=== PATIENT | female | born 1960 | race Caucasian/White ===

== ENCOUNTER 2017-05-09 21:14 | Inpatient (IN) | payer OTHER ==
[~2017-05-09] VITALS: Ht 160 cm; Wt 111.1 kg
[2017-05-09 21:14] VITALS: BP 136/74
[~2017-05-09 21:14] MED LIST: ACETAMINOPHEN-120 ML PO; B-12250 MCG SUBLING; BACTRIM DS TAB1 EACH PO; BENAZEPRIL HCL20 MG PO; CALCIUM CITRAT1 EAC9 PO; CARBAMAZEPINE400 MG PO; CELEBREX 200 M200 MG PO; CLOBETASOL PROP50 M1 TOP; CYMBALTA60 MG PO; ENABLEX15 MG PO; FLOMAX0.4 MG PO; FUROSEMIDE 20 M20 M1 PO; FUROSEMIDE 40 M40 M1 PO; HYDROCERIN CREA1 JAR TOP; K-DUR10 MEQ PO; KLOR-CON 1010 MEQ PO; LUNESTA3 MG PO; MAGNESIUM OXID200 MG PO; MIRAPEX0.5 MG PO; MULTIVITAMINS PO; MYRBETRIQ25 MG PO; MYRBETRIQ50 MG PO; NORCO 10-325 T1 EACH PO; NORVASC10 MG PO; OMEPRAZOLE20 MG PO; OXYCONTIN20 M1 PO; PERCOCET 10-321 EACH PO; PERCOCET 5-3251 EACH PO; PHENERGAN 25 MG25 M1 PO; PREDNISONE 10 M10 M1 PO; THIOTHIXENE10 M1; TIROSINT75 MCG PO; TRAZODONE 150150 M1; VESICARE10 M1 PO; VITAMIN D 5050000 I1 PO; VITAMINC500 PO; ZOFRAN ODT4 MG PO
[2017-05-09 22:22] LABS: HEMATOCRIT 34.1 % (37.0-47.0); HEMOGLOBIN 11.2 gm/dL (12.0-15.0); MCH 28.6 pg (26.0-34.0); MCHC 32.9 g/dL (28.0-37.0); MCV 86.8 fL (80.0-100.0); PLATELET COUNT 243 thou/uL (150-400); RBC 3.92 mil/uL (4.20-5.00); RDW 14.4 % (10.5-14.5); WBC 8.6 thou/uL (4.0-11.0)
[2017-05-09 22:30] LABS: CREATININE 2.2 mg/dL (0.6-1.0)
[2017-05-09 22:35] LABS: ALBUMIN 3.3 g/dL (3.4-5.0); TOTAL BILIRUBIN 0.2 mg/dL (<0.1-1.0); TOTAL PROTEIN 7.5 g/dL (6.4-8.2)
[2017-05-09 22:37] LABS: MANUAL DIFF YES
[2017-05-09 23:03] LABS: ABSOLUTE NEUTROPHILS 6.9 thou/uL (1.4-8.2); ANISOCYTOSIS 1+; TOTAL CELL COUNT 100
[2017-05-09 23:57] VITALS: BP 124/68
[2017-05-10 00:35] VITALS: BP 129/68
[2017-05-10 04:33] VITALS: BP 105/47
[2017-05-10 06:00] LABS: HEMATOCRIT 29.1 % (37.0-47.0); HEMOGLOBIN 9.7 gm/dL (12.0-15.0); MCH 28.6 pg (26.0-34.0); MCHC 33.4 g/dL (28.0-37.0); MCV 85.6 fL (80.0-100.0); RBC 3.39 mil/uL (4.20-5.00); RDW 14.1 % (10.5-14.5); WBC 6.8 thou/uL (4.0-11.0)
[2017-05-10 06:18] LABS: ALBUMIN 2.6 g/dL (3.4-5.0); CALCIUM 8.5 mg/dL (8.5-10.1); POTASSIUM 3.9 mmol/L (3.5-5.1); TOTAL BILIRUBIN 0.2 mg/dL (<0.1-1.0); TOTAL PROTEIN 6.1 g/dL (6.4-8.2)
[2017-05-10 08:49] VITALS: BP 108/65
[2017-05-10 16:26] VITALS: BP 111/56
[2017-05-10 19:40] VITALS: BP 122/44
[2017-05-11 03:10] VITALS: BP 105/51
[2017-05-11 03:56] LABS: POTASSIUM 4.3 mmol/L (3.5-5.1)
[2017-05-11 04:08] LABS: HEMATOCRIT 28.7 % (37.0-47.0); HEMOGLOBIN 9.6 gm/dL (12.0-15.0); MCH 28.6 pg (26.0-34.0); MCHC 33.4 g/dL (28.0-37.0); MCV 85.7 fL (80.0-100.0); PLATELET COUNT 220 thou/uL (150-400); RBC 3.35 mil/uL (4.20-5.00); RDW 14.3 % (10.5-14.5); WBC 4.2 thou/uL (4.0-11.0)
[2017-05-11 04:11] LABS: MANUAL DIFF YES
[2017-05-11 05:24] LABS: ABSOLUTE NEUTROPHILS 1.9 thou/uL (1.4-8.2); ANISOCYTOSIS SLIGHT; TOTAL CELL COUNT 100
[2017-05-11 08:00] VITALS: BP 119/69
[2017-05-11 16:00] VITALS: BP 122/57
[2017-05-11 20:00] VITALS: BP 133/63
[2017-05-12 04:30] VITALS: BP 121/67
[2017-05-12 04:53] LABS: CALCIUM 8.9 mg/dL (8.5-10.1); POTASSIUM 4.8 mmol/L (3.5-5.1)
[2017-05-12 08:00] VITALS: BP 130/67
[2017-05-12] MEDS ORDERED: CLEOCIN HCL150 MG PO (14:00)
[2017-05-12 14:16] VITALS: BP 130/67
== END 2017-05-12 16:00 | disposition home or self-care (01) | DRG 602 ==
LOC: ER 21:14 → EROBS 23:13 → 4S 23:13 → EROBS 23:28 → 4S 05-10 00:18
PROVIDERS: Emergency Medicine; Internal Medicine Endocrinology, Diabetes & Metabolism; Nurse Practitioner
DX: L03.116 Cellulitis of left lower limb (principal); E43 Unspecified severe protein-calorie malnutrition; N17.9 Acute kidney failure, unspecified; Z68.41 Body mass index [BMI] 40.0-44.9, adult; L03.115 Cellulitis of right lower limb; N18.9 Chronic kidney disease, unspecified; I12.9 Hypertensive chronic kidney disease with stage 1 through stage 4 chronic kidney disease, or unspecified chronic kidney disease; E66.01 Morbid (severe) obesity due to excess calories; G47.30 Sleep apnea, unspecified; F31.9 Bipolar disorder, unspecified; Z96.653 Presence of artificial knee joint, bilateral; Z98.1 Arthrodesis status; Z79.899 Other long term (current) drug therapy; Z88.8 Allergy status to other drugs, medicaments and biological substances; Z88.0 Allergy status to penicillin; Z98.84 Bariatric surgery status
CPT/HCPCS: 10102

== ENCOUNTER → 2018-01-30 | Outpatient (CLI) | payer OTHER ==
[~2018-01-30] MED LIST changes: +ACETAMINOPHEN325 M1 PO; +ASPIR 8181 MG PO; +ATORVASTATIN CA40 MG PER TUBE; +ATORVASTATIN CA40 MG PO; -B-12250 MCG SUBLING; -BENAZEPRIL HCL20 MG PO; +BENAZEPRIL HCL40 MG PO; +CLEOCIN HCL150 MG PO; +CLOPIDOGREL75 MG PO; +COREG6.25 MG PO; +COZAAR 25 MG TA25 M1 PO; +DOXYCYCLINE 10100 MG PO; +ENDOCET 10-3251 EACH PO; -KLOR-CON 1010 MEQ PO; +LASIX 20 MG TAB20 MG PO; -MIRAPEX0.5 MG PO; +MIRAPEX0.75 MG PO; +NEURONTIN600 MG PO; +OXYCONTIN40 MG PO; +PACERONE 200 M200 M1 PER TUBE; +PACERONE 200 M200 M1 PO; +POTASSIUM CITR10 ME1 PO; +SYNTHROID75 MCG PO; -THIOTHIXENE10 M1; +THIOTHIXENE10 M1 PO; -TIROSINT75 MCG PO; +TOVIAZ4 M1 PO; -TRAZODONE 150150 M1; +TRAZODONE 150150 M1 PO; +TRIAMCINOLONE A80 G2 TOP; +TUMS PO; +VITAMIN B-12 51 EACH SUBLING
== END ==
LOC: ULTRA 10:16 → EDSTATUS 14:52
DX: M67.441 Ganglion, right hand (principal)

== ENCOUNTER → 2018-12-09 | Outpatient (CLI) | payer OTHER ==
[~2018-12-09] VITALS: Ht 160 cm; Wt 93.0 kg
[~2018-12-09] MED LIST changes: +ABILIFY 5 MG TAB5 MG PO; +B-125000 MCG/1 SUBLING
[2018-12-09 07:10] VITALS: BP 121/67
[2018-12-09 07:33] LABS: HEMATOCRIT 31.8 % (37.0-47.0); HEMOGLOBIN 10.5 gm/dL (12.0-15.0); MCH 29.2 pg (26.0-34.0); MCHC 33.2 g/dL (28.0-37.0); MCV 88.2 fL (80.0-100.0); RBC 3.6 mil/uL (4.20-5.00); RDW 13.9 % (10.5-14.5); WBC 5.5 thou/uL (4.0-11.0)
[2018-12-09 07:42] LABS: CALCIUM 8.9 mg/dL (8.5-10.1); CREATININE 1.6 mg/dL (0.6-1.0)
--- NOTE | 2018-12-09 13:13 | EKG ---
[address] [address] ELECTROCARDIOGRAM REPORT Name: SUE ANGUIANO [id number] Admission: 12/09/18 Attend Phys: Wilber Balbuena MD, Discharge: Date of : 56 Report #: [id number] THIS REPORT FOR: //name// [facility] Test Date: 2018-12-09 Test Time: 07:17:58 Pat Name: SUE ANGUIANO Department: Room: Gender: F Tree Chipper: Sia TAFOYA : 1960 Requested By: Wilber Balbuena Order Number: [id number] MD: Dayo Bowman Measurements Intervals Bowman Rate: 60 P: 38 SC: 206 QRS: 62 QRSD: 86 T: 36 QT: 395 QTc: 395 Interpretive Statements Sinus rhythm Borderline prolonged SC interval Borderline repolarization abnormality Compared to ECG 07/17/2018 06:22:00 Sinus tachycardia no longer present Myocardial infarct finding no longer present ST (T wave) deviation no longer present Electronically Signed On 12-09-2018 13:13:05 DECALER by Dayo Bowman [email or web address] <ELECTRONICALLY SIGNED> By: Dayo Bowman MD 12/09/18 1313 6 6 Dayo Bowman MD /EPI
--- NOTE | 2018-12-10 12:22 | CATHLAB ---
[facility] [place] [address] INVASIVE PROCEDURE REPORT Name: SUE ANGUIANO Room #: REG Tabatha#: [id number] Admission: 12/09/18 Attend Phys: Wilber Balbuena, Discharge: Date of : 56 Date of Service: 12/10/18 1222 Report #: [id number] THIS REPORT FOR: //name// APPROVED REPORT Study performed: 12/09/2018 08:11:04 Patient Details Patient Status: Out-Patient Room #: The patient is a 58 year-old female Event Personnel Wilber Balbuena Sales Project Coordinator, Peace Quan, Kahlil Goldstein David Monitor, Jack Siddiqui RN dyeing machine feeder Performed Left Heart Cath w/or w/o Coronaries [id number] [facility] Renal Bilateral Peripheral Angiography [id number] CVRENALBIL Indication Chest pain Procedure Narrative The Right Groin^ was infiltrated with 1% Lidocaine subcutaneous anesthesia. A PINNACLE 6FR Sheath #[id number] sheath was inserted into the RFA^. Coronary angiography was performed using coronary diagnostic catheters. The right coronary system was accessed and visualized with a JR4 catheter. The left coronary system was accessed and visualized with a JL4 catheter. The left ventricle was accessed and visualized with a PIGTAIL catheter. Left ventriculogram was performed in 30 degree projection. Closure device was deployed with a 6 Fr MYNXGRIP 6/7F #[id number]. The patient tolerated the procedure well and there were no complications associated with the procedure. There was no hematoma. Intraoperative Conscious Sedation Sedation start time: 8.33 Case end Time: 9.06 Fentanyl 50 mcg Versed 1 mg Fluoro Time: 2.25 minutes Dose: DAP 4081 cGycm2 425 mGy Contrast Type and Amount: Visipaque 90 ml Hemodynamics [facility] [place] [address] INVASIVE PROCEDURE REPORT Name: SUE ANGUIANO [id number] Admission: 12/09/18 Attend Phys: Wilber Balbuena, Discharge: Date of : 56 Date of Service: 12/10/18 1222 Report #: [id number] The aortic pressure is 117/67 mmHg with a mean of 88 mmHg. The left ventricular pressure is 127/15 mmHg with a mean of mmHg. Conclusion #1 left main moderate size free of disease giving rise to LAD and circumflex #2 LAD has a previously placed proximal stent widely patent 30% lesion proximal to the stent and mid vessel at the diagonal takeoff has a 40-50% eccentric lesion #3 circumflex OM with mild disease there is a 50% proximal lesion which actually lives in the proximal OM #4 small ramus branch has a high-grade lesion but this is small and distribution not amenable to intervention #5 large dominant right coronary artery widely patent #6 there is a dual supply to left renal arteries selectively injected inferior branch has a 50% ostial lesion left superior branch also has a 50% eccentric ostial lesion involving the right renal artery has a 50% lesion #7 normal left ventricular size and systolic function EF 60% Recommendations and plan: Continue aggressive risk factor modification. We'll follow blood pressure closely. Has moderate renal artery stenosis although does not warrant intervention at this point. Moderate LAD and circumflex disease which we will follow. Follow-up arrangements 6 months with a renal Doppler. <ELECTRONICALLY SIGNED> By: Wilber Balbuena MD, FACC 12/10/18 1222 122 122 Wilber Balbuena MD, FACC /INF
== END | disposition home or self-care (01) ==
LOC: CATH 06:54
PROVIDERS: Internal Medicine Cardiovascular Disease
DX: I25.10 Atherosclerotic heart disease of native coronary artery without angina pectoris (principal); I11.0 Hypertensive heart disease with heart failure; I50.9 Heart failure, unspecified; I42.9 Cardiomyopathy, unspecified; E78.5 Hyperlipidemia, unspecified; M79.7 Fibromyalgia; F31.9 Bipolar disorder, unspecified; G62.9 Polyneuropathy, unspecified; Z82.49 Family history of ischemic heart disease and other diseases of the circulatory system; E66.09 Other obesity due to excess calories; Z96.653 Presence of artificial knee joint, bilateral; Z98.51 Tubal ligation status; Z95.1 Presence of aortocoronary bypass graft; Z95.5 Presence of coronary angioplasty implant and graft; Z87.19 Personal history of other diseases of the digestive system; Z86.711 Personal history of pulmonary embolism; Z88.0 Allergy status to penicillin; Z88.8 Allergy status to other drugs, medicaments and biological substances; Z79.82 Long term (current) use of aspirin; Z79.899 Other long term (current) drug therapy; Z79.891 Long term (current) use of opiate analgesic; Z79.01 Long term (current) use of anticoagulants

== ENCOUNTER 2019-01-27 14:10 | Emergency (ER) | payer OTHER ==
[~2019-01-27] VITALS: Ht 160 cm; Wt 97.1 kg
[2019-01-27 18:11] LABS: BASOPHILS 1.8 % (0.0-2.0); EOSINOPHILS 5.6 % (0.0-3.0); HEMATOCRIT 31.1 % (37.0-47.0); HEMOGLOBIN 10.2 gm/dL (12.0-15.0); MCH 27.9 pg (26.0-34.0); MCHC 32.9 g/dL (28.0-37.0); MCV 84.9 fL (80.0-100.0); PLATELET COUNT 354 thou/uL (150-400); POLYS 53.6 % (36.0-66.0); RBC 3.67 mil/uL (4.20-5.00); WBC 5.5 thou/uL (4.0-11.0)
[2019-01-27 18:19] LABS: CALCIUM 9.5 mg/dL (8.5-10.1); CREATININE 2.1 mg/dL (0.6-1.0); POTASSIUM 4.1 mmol/L (3.5-5.1)
[2019-01-27 19:22] VITALS: BP 136/71
== END 2019-01-27 19:23 | disposition home or self-care (01) ==
LOC: ER 14:10
PROVIDERS: Nurse Practitioner Family
DX: G89.18 Other acute postprocedural pain (principal); M79.662 Pain in left lower leg; R22.42 Localized swelling, mass and lump, left lower limb; L53.9 Erythematous condition, unspecified; I10 Essential (primary) hypertension; G47.30 Sleep apnea, unspecified; I25.10 Atherosclerotic heart disease of native coronary artery without angina pectoris; M79.7 Fibromyalgia; F31.9 Bipolar disorder, unspecified; G62.9 Polyneuropathy, unspecified; Z88.1 Allergy status to other antibiotic agents; Z88.0 Allergy status to penicillin; Z88.8 Allergy status to other drugs, medicaments and biological substances; Z96.653 Presence of artificial knee joint, bilateral

== ENCOUNTER 2019-08-16 01:47 | Emergency (ER) | payer OTHER ==
[~2019-08-16] VITALS: Ht 160 cm; Wt 98.0 kg
[2019-08-16] MEDS ORDERED: NEURONTIN 300300 M1 PO (02:22)
[2019-08-16] MEDS ORDERED: FLEXERIL PO (02:23)
[2019-08-16] MEDS ORDERED: DOXYCYCLINE 10100 MG PO (02:24)
[2019-08-16 03:28] LABS: ABSOLUTE NEUTROPHILS 5.7 thou/uL (1.4-8.2); EOSINOPHILS 0.6 % (0.0-3.0); HEMATOCRIT 36.2 % (37.0-47.0); HEMOGLOBIN 11.5 gm/dL (12.0-15.0); LYMPHOCYTES 13.1 % (24.0-44.0); MCH 27.4 pg (26.0-34.0); MCHC 31.9 g/dL (28.0-37.0); MONOCYTES 4.9 % (1.0-8.0); PLATELET COUNT 208 thou/uL (150-400); POLYS 80.4 % (36.0-66.0); RBC 4.21 mil/uL (4.20-5.00); RDW 16.7 % (10.5-14.5); WBC 7.1 thou/uL (4.0-11.0)
[2019-08-16 03:32] LABS: ANION GAP 10 mmol/L (7-16); BUN 44 mg/dL (7-18); CALCIUM 8.9 mg/dL (8.5-10.1); CHLORIDE 107 mmol/L (98-107); CO2 25 mmol/L (21-32); CREATININE 1.4 mg/dL (0.6-1.0); GLUCOSE 96 mg/dL (74-106); POTASSIUM 4.3 mmol/L (3.5-5.1); SODIUM 142 mmol/L (136-145)
[2019-08-16 03:41] LABS: TROPONIN-I <0.06 ng/mL (<0.06)
[2019-08-16 05:09] VITALS: BP 137/62
--- NOTE | 2019-08-16 14:31 | EKG ---
[address] [address] [place] [address] ELECTROCARDIOGRAM REPORT Name: SUE ANGUIANO Room #: DEP [facility]#: [id number] ������������������ Admission: 08/16/19 ������������������ Attend Phys: Discharge: 08/16/19 ������������������ Date of : 56 Report #: [id number] ����������������������������������������������������������������� [id number] THIS REPORT FOR: //name// [facility] ED Test Date: 2019-08-16 Test Time: 02:33:21 Pat Name: SUE ANGUIANO Department: Room: Gender: F Vault Attendant: ZAIDA : 1960 Requested By: Gus Echols Order Number: [id number] MD: Evangelist Heller Measurements Intervals [place] Rate: 60 P: 34 VT: 212 QRS: 30 QRSD: 88 T: 86 QT: 417 QTc: 417 Interpretive Statements Sinus rhythm Borderline prolonged VT interval Probable anteroseptal infarct, old Compared to ECG 12/09/2018 07:17:58 septal Q waves are now present Electronically Signed On 08-16-2019 14:30:53 CDT by Evangelist Heller [email or web address] ��������������������������������������������� <ELECTRONICALLY SIGNED> ���������������������������������������� By: Evangelist Heller MD, [facility] ��������������������������������������������� 08/16/19 1430 0233 0233 Evangelist Heller MD, [facility] /EPI
== END 2019-08-16 05:12 | disposition home or self-care (01) ==
LOC: ER 01:47
PROVIDERS: Emergency Medicine
DX: I10 Essential (primary) hypertension (principal); R06.00 Dyspnea, unspecified; I25.10 Atherosclerotic heart disease of native coronary artery without angina pectoris; I25.2 Old myocardial infarction; F31.9 Bipolar disorder, unspecified; G62.9 Polyneuropathy, unspecified; M79.7 Fibromyalgia; Z98.890 Other specified postprocedural states; Z96.653 Presence of artificial knee joint, bilateral; Z98.84 Bariatric surgery status; Z88.1 Allergy status to other antibiotic agents; Z88.0 Allergy status to penicillin; Z88.8 Allergy status to other drugs, medicaments and biological substances

== ENCOUNTER → 2019-09-03 | Outpatient (CLI) | payer OTHER ==
[~2019-09-03] MED LIST changes: +FLEXERIL PO; +NEURONTIN 300300 M1 PO
== END ==
LOC: NUC 08:20
DX: M81.0 Age-related osteoporosis without current pathological fracture (principal); M85.88 Other specified disorders of bone density and structure, other site; L03.115 Cellulitis of right lower limb

== ENCOUNTER → 2020-04-26 | Outpatient (CLI) | payer OTHER | LOC: SJCVCIMAG 13:43 | DX: R22.43 Localized swelling, mass and lump, lower limb, bilateral (principal); I87.2 Venous insufficiency (chronic) (peripheral) ==

== ENCOUNTER 2020-10-01 16:48 | Inpatient (IN) | payer OTHER ==
[~2020-10-01] VITALS: Ht 154.9 cm; Wt 124.7 kg
[~2020-10-01 16:48] MED LIST changes: -NEURONTIN 300300 M1 PO; +NEURONTIN 300M300 M2 PO
[2020-10-01 17:36] VITALS: BP 179/91
[2020-10-01 18:22] LABS: BASOPHILS 0.2 % (0.0-2.0); EOSINOPHILS 0.6 % (0.0-3.0); HEMATOCRIT 36.7 % (37.0-47.0); HEMOGLOBIN 11.6 gm/dL (12.0-15.0); LYMPHOCYTES 3.5 % (24.0-44.0); MCH 28.2 pg (26.0-34.0); MCHC 31.6 g/dL (28.0-37.0); MCV 89.4 fL (80.0-100.0); MONOCYTES 6.2 % (1.0-8.0); PLATELET COUNT 221 thou/uL (150-400); POLYS 89.5 % (36.0-66.0); RBC 4.11 mil/uL (4.20-5.00); RDW 15.2 % (10.5-14.5); WBC 16.7 thou/uL (4.0-11.0)
[2020-10-01 18:39] LABS: ANION GAP 12 mmol/L (7-16); BUN 39 mg/dL (7-18); CALCIUM 9.2 mg/dL (8.5-10.1); CHLORIDE 107 mmol/L (98-107); CO2 24 mmol/L (21-32); CREATININE 1.6 mg/dL (0.6-1.0); GLUCOSE 111 mg/dL (74-106); POTASSIUM 4.3 mmol/L (3.5-5.1); SODIUM 143 mmol/L (136-145)
[2020-10-01 18:50] LABS: ALBUMIN 3.3 g/dL (3.4-5.0); MAGNESIUM 1.9 mg/dL (1.8-2.4); SGOT 25 U/L (15-37); SGPT 33 U/L (30-65); TOTAL BILIRUBIN 0.4 mg/dL (0.2-1.0); TOTAL PROTEIN 6.7 g/dL (6.4-8.2); TROPONIN-I <0.06 ng/mL (<0.06)
--- NOTE | 2020-10-01 20:01 | NUR ---
PT REPORTS SHE IS NOT ABLE TO PROVIDE A UA AT THIS TIME.
[2020-10-01 20:51] LABS: URINE BILIRUBIN NEGATIVE (Negative); URINE BLOOD NEGATIVE (Negative); URINE CLARITY SL CLOUDY; URINE COLOR YELLOW; URINE GLUCOSE-RANDOM* NEGATIVE (Negative); URINE KETONES NEGATIVE (Negative); URINE NITRITE-REFLEX NEGATIVE (Negative); URINE PROTEIN (DIPSTICK) NEGATIVE (Negative); URINE SPECIFIC GRAVITY 1.025 (1.005-1.035); URINE UROBILINOGEN 0.2 E.U./dl (0.2-1.0)
[2020-10-01 20:52] LABS: URINE LEUKOCYTES-REFLEX 1+ (Negative)
[2020-10-01 21:15] LABS: SQUAMOUS >10 Many /LPF (0-3)
[2020-10-01 21:16] LABS: BACTERIA-REFLEX >30 Many /HPF (None Seen); CASTS None Seen /LPF (None Seen); CRYSTALS None Seen /LPF (None Seen); URINE RBC 0-2 Rare /HPF (0-2)
[2020-10-01] MEDS ORDERED: MIRAPEX1 MG PO (22:01)
[2020-10-01 23:48] LABS: FERRITIN 85 ng/mL (8-252)
[2020-10-02] VITALS (7 sets, daily range): BP systolic 101–167; BP diastolic 61–89
--- NOTE | 2020-10-02 02:52 | NUR ---
PT ADMITTED FROM ER C/O WEAKNESS, FATIGUE, CHEST PAIN, FEVER, . ST ON MONITOR. FIRST TROPONIN IS NEGATIVE. IST COVID IS NEGATIVE. ORIENTED PT TO ROOM. CALL LIGHT IN REACH. BED ALARM IS ON. BED DOWN IN LOW LOCKED POSITION. EXPLAINED PT TO LOW LOCKED POSIION.
--- NOTE | 2020-10-02 05:30 | NUR ---
PT PROGRESSING SLOWLY TOWARDS D/C GOALS. VSS. LOW GRADE EMP. HYDROCODONE GIVEN FOR C/O LE PAIN NO RELIEVED BY FLEXORIL. GABAPENTIN GIVEN EARLY REQUESTED PER URGENT CARE PHYSICIAN. COVID AND TROPONIN NEGATIVE SO FAR.
[2020-10-02 05:41] LABS: CALCIUM 8.7 mg/dL (8.5-10.1); CREATININE 1.4 mg/dL (0.6-1.0); POTASSIUM 4.1 mmol/L (3.5-5.1)
[2020-10-02 05:51] LABS: HEMATOCRIT 33.1 % (37.0-47.0); HEMOGLOBIN 10.6 gm/dL (12.0-15.0); MCH 28.5 pg (26.0-34.0); MCHC 31.9 g/dL (28.0-37.0); MCV 89.5 fL (80.0-100.0); RBC 3.7 mil/uL (4.20-5.00); RDW 14.6 % (10.5-14.5); WBC 13.9 thou/uL (4.0-11.0)
--- NOTE | 2020-10-02 15:53 | NUR ---
PT MAY BE DC'D FROM ENHANCED PRECAUTIONS PER DR MIKE DICKENS
--- NOTE | 2020-10-02 22:14 | NUR ---
PT ALERT AND ORIENTED X4 VSS. HRR 66 SR ON MONITOR. NO C/O CP NO SOA. NO S/S DISTRESS. NEW IV STARTED RIGHT HAND. IVF INFUSING WITHOUT DIFFICULTY. PUREWICK INTACT DRAINING CLEAR YELLOW URINE. HYDROCODONE GIVEN FORE C/O ALL OVER GENERALIZED PAIN. PT RESTING QUIETLY PRESENTLY NO S/S DISTRESS.
[2020-10-03 02:01] VITALS: BP 132/76
--- NOTE | 2020-10-03 02:33 | NUR ---
PATIENT TRANSFER FROM 3W.PATIENT AOX4 MAKES NEEDS KNOWN. PATIENT REFUSED C PAP THIS SHIFT.PAIN CONTROLLED TH IS SHIFT. PATIENT INCONTIENT THIS SHIFT PERICARE AND BARRIER APPLIED NEEDED.SCD ON.FALL PRECAUTION IN PLACE. PATIENT IN BED ASLEEP AT THIS TIME BREATHING REGULAR AND UNLBOURED.
--- NOTE | 2020-10-03 07:45 | EKG ---
[facility] [place] [facility] [place] [address] ELECTROCARDIOGRAM REPORT Name: SUE ANGUIANO Room #: 456-P ADM IN M.R.#: [id number] Admission: 10/01/20 Attend Phys: Christiano Albert MD Discharge: Date of : 56 Report #: [id number] THIS REPORT FOR: cc: NERISSA ARCE - Family physician unknown Evangelist Heller MD [facility] THIS REPORT FOR: //name// [facility] [place] [facility] ED Test Date: 2020-10-01 Test Time: 16:54:42 Pat Name: SUE ANGUIANO Department: Room: [facility] Gender: F Thiokol Operator: [facility] : 1960 Requested By: Emeterio Laws Order Number: [id number] MD: Evangelist Heller Measurements Intervals [place] Rate: 98 P: 44 MI: 202 QRS: 15 QRSD: 87 T: 61 QT: 325 QTc: 415 Interpretive Statements Sinus rhythm with first-degree AV block Otherwise normal tracing Compared to ECG 08/16/2019 02:33:21 No significant changes found Electronically Signed On 10-03-2020 7:45:39 MILD DISABILITIES TEACHER by Evangelist Heller [email or web address] <ELECTRONICALLY SIGNED> By: Evangelist Heller MD, [facility] 10/03/20 0745 1654 1654 Evangelist Heller MD, [facility] /EPI
--- NOTE | 2020-10-03 07:51 | EKG ---
[facility] [place] [address] [address] ELECTROCARDIOGRAM REPORT Name: SUE ANGUIANO Room #: 456-P ADM IN M.R.#: [id number] Admission: 10/01/20 Attend Phys: Christiano Albert MD Discharge: Date of : 56 Report #: [id number] THIS REPORT FOR: cc: NERISSA ARCE - Family physician unknown Evangelist Heller MD [facility] THIS REPORT FOR: //name// [facility] Test Date: 2020-10-02 Test Time: 07:18:46 Pat Name: SUE ANGUIANO Department: Room: [facility] Gender: F Heel Layer: ABRAHAM : 1960 Requested By: Candi Ch Order Number: [id number] MD: Evangelist Heller Measurements Intervals [place] Rate: 89 P: 41 [place]: 181 QRS: 46 QRSD: 93 T: 17 QT: 343 QTc: 418 Interpretive Statements Sinus rhythm Normal tracing Compared to ECG 10/01/2020 16:54:42 No significant change was found Electronically Signed On 10-03-2020 7:51:02 PREPPER by Evangelist Heller [email or web address] <ELECTRONICALLY SIGNED> By: Evangelist Heller MD, FACC 10/03/20 0751 7 7 Evangelist Heller MD, [facility] /EPI
[2020-10-03 08:00] VITALS: BP 103/56
--- NOTE | 2020-10-03 09:58 | NUR ---
Assess due to high BMI 52=extreme obesity. Hx htn, HARISH, gastric bypass 2001, bipolar, NSTEMI. Admit with weakness, UTI. Pt reports and frustrated with wt gain of at least 50-60 lb which she states happened "with COVID crisis". Wt records do reflect this severe gain. Pt reports more snacking, limited mobility, lack of portion control. Offered some suggestions however pt with very limited food preferences and does not routinely like fruits or vegetables. Requested information on heart healthy diet which was provided. Encouraged to make small changes, reduce portions, try new healthier foods. Low nutrition risk while hospitalized.
[2020-10-03 10:05] LABS: CREATININE 1.4 mg/dL (0.6-1.0); POTASSIUM 3.9 mmol/L (3.5-5.1)
--- NOTE | 2020-10-03 11:24 | NUR ---
Assumed pt care at 7am.Pt in bed alert and oriented x4.Assessment completed. vss but low bp noted.Monique air drier here and order noted.Pt will be having echo later today.Covid 19 swab done later this morning.Pain med given early this shift with relief.No further c/o at present.Will continue to monitor.
--- NOTE | 2020-10-03 12:12 | NUR ---
PT ADMITTED RELATED TO R/O COVID, UTI, LEUKOCYTOSIS, BLE WEAKNESS. CM REVIEWED CHART AND SPOKE WITH CARE TEAM. CM CALLED AND SPOKE WITH PT OVER THE PHONE THIS AM. PT APPEARED TO BE A&O X4. CM ROLE INTRODUCED. PT INDICATED SHE LIVES IN A HOSUE WITH HE SPOUSE WITH A RAMP TO ENTER. PT INDICATED SHE USED A FWW AND A WC TO ASSSIT WITH MOBILITY MATERIAL EXPEDITOR. PT INDICATED HER PCP IS DR. NERISSA ARCE BUT SHE'S LOOKING TO CHANGE. PT INDICATED THAT SHE WAS INTERESTED IN GOING TO 5N AND DIDN'T WANT TO GO TO SNF DUE TO COVID. PT HAD BEEN TO [facility] IN THE PAST. CM INDICATED THAT PT'S INSURANCE LIKELY WOULDN'T AUTH ACUTE REHAB BUT THAT CM WOULD NOTIFY LIAISON. LIAISON INDIATED THAT PT DIDN'T LOOK TO HAVE ANY APPROPRIATE DX FOR ADMISSION. CM NOTIFIED PT AND WILL PROVIDE [facility] SNF LIST FOR REVIEW. CM TO FOLLOW INDICATED WITH DC PLANNING.
--- NOTE | 2020-10-03 13:28 | 2DMMODE ---
[facility] [place] [address] [place] [address] 2 D/M-MODE ECHOCARDIOGRAM Name: SUE ANGUIANO Room #: 456-P ADM IN M.R.#: [id number] Admission: 10/01/20 Attend Phys: Christiano Albert MD Discharge: Date of : 56 Report #: [id number] THIS REPORT FOR: cc: NERISSA ARCE - Family physician formerly [facility] Inder Barnes MD [facility] ~ APPROVED REPORT Study performed: 10/03/2020 13:12:22 EXAM: Comprehensive 2D, Doppler, and color-flow Echocardiogram Patient Location: Bedside Room #: 456 Status: routine BSA: 2.14 HR: 87 bpm BP: 132/76 mmHg Rhythm: NSR Other Information Study Quality: Good Indications CAD Cardiomyopathy Hypertension/HDD 2D Dimensions RVDd: 41.81 mm IVSd: 11.34 (7-11mm) LVOT Diam: 20.32 (18-24mm) LVDd: 52.24 mm PWd: 10.61 (7-11mm) Ascending Ao: 32.20 (22-36mm) LVDs: 37.91 (25-40mm) Aortic Root: 30.29 mm IVC: 26.00 mm Volumes Left Atrial Volume (Systole) Single Plane 4CH: 108.67 mL Single Plane 2CH: 74.89 mL LA ESV Index: 46.00 mL/m2 Aortic Valve AoV Peak Myron.: 1.62 m/s AO Peak Gr.: 10.52 mmHg LVOT Max P.49 mmHg [facility] [address] [place] [address] 2 D/M-MODE ECHOCARDIOGRAM Name: SUE ANGUIANO Room #: 456-P [facility] IN .R.#: [id number] Admission: 10/01/20 Attend Phys: Christiano Albert MD Discharge: Date of : 56 Report #: [id number] LVOT Max V: 1.17 m/s FLORINA Vmax: 2.34 cm2 Mitral Valve E/A Ratio: 1.1 MV Decel. Time: 224.98 ms MV E Max Myron.: 1.28 m/s MV A Myron.: 1.15 m/s MV PHT: 65.24 ms IVRT: 96.89 ms Pulmonary Valve PV Peak Myron.: 1.07 m/s PV Peak Gr.: 4.62 mmHg Pulmonary Vein P Vein S: 0.67 m/s P Vein A: 0.24 m/s P Vein D: 0.33 m/s P Vein A Dur.: 110.7 msec P Vein S/D Ratio: 2.03 Tricuspid Valve TR Peak Myron.: 2.86 m/s TR Peak Gr.: 32.67 mmHg PA Pressure: 43.00 mmHg Left Ventricle The left ventricle is normal size. There is normal LV segmental wall motion. There is normal left ventricular wall thickness. The left ventricular systolic function is normal. The left ventricular ejection fraction is within the normal range. LVEF is 55%. Grade II - pseudonormal filling dynamics. Right Ventricle The right ventricle is normal size. The right ventricular systolic function is normal. Atria Left atrium is dilated. Right atrium is dilated. Aortic Valve The aortic valve is normal in structure. No aortic regurgitation is present. There is no aortic valvular stenosis. Mitral Valve The mitral valve is normal in structure. Mild mitral regurgitation. No evidence of mitral valve stenosis. [facility] [employer] [place] [address] 2 D/M-MODE ECHOCARDIOGRAM Name: SUE ANGUIANO Room #: 456-P [facility] IN M.R.#: [id number] Admission: 10/01/20 Attend Phys: Christiano Albert MD Discharge: Date of : 56 Report #: [id number] Tricuspid Valve The tricuspid valve is normal in structure. There is mild tricuspid regurgitation. Estimated PAP 43 mmHg. There is moderate pulmonary hypertension. Pulmonic Valve The pulmonary valve is normal in structure. There is no pulmonic valvular regurgitation. Great Vessels The aortic root is normal in size. IVC is dilated and collapses >50% with inspiration. Pericardium There is no pericardial effusion. <Conclusion> Normal left ventricular size and the wall thickness Preserved ejection fraction of 55% Grade 1 diastolic dysfunction Mild aortic valve sclerosis without stenosis Normal right ventricular size and function LV; no segmental wall motion abnormality Mild biatrial enlargement Mild mitral valve insufficiency Mild tricuspid valve insufficiency PA pressure systolic estimated 43 mmHg No pericardial effusion <ELECTRONICALLY SIGNED> By: Inder Barnes MD, FACC 10/03/201327 27 27 Inder Barnes MD, FACC /INF
[2020-10-03 20:00] VITALS: BP 138/86
[2020-10-04 00:03] VITALS: BP 150/87
[2020-10-04 04:40] VITALS: BP 127/76
[2020-10-04 07:26] VITALS: BP 133/73
[2020-10-04 09:15] LABS: CALCIUM 8.2 mg/dL (8.5-10.1); CREATININE 1.2 mg/dL (0.6-1.0); POTASSIUM 4.4 mmol/L (3.5-5.1)
[2020-10-04 16:06] VITALS: BP 141/61
--- NOTE | 2020-10-04 16:09 | NUR ---
LINK reviewed chart and spoke with nursing and attending physician. Pt was transferred to 3 from 4W yesterday after receiving positive COVID test. Pt placed in Enhanced Isolation. Pt is on IV abx. LINK spoke with pt via phone to discuss discharge plan: SNF v. home with HH. Pt states she would prefer to have HH come see her at home. Options provided for HH companies. Pt states she has used [facility] in the past and would like to use them again. Pt also stating she needs a walker and wheelchair. community development planner to fax HH referral to [facility]. LINK sent face sheet to [facility] for review to see if they accept pt's insurance for DME. Discharge home is anticipated in 1-2 days. LINK is following to assist as needed with discharge planning.
--- NOTE | 2020-10-04 19:21 | NUR ---
ASSUMED PATIENT CARE AT 0700. A/O X4. UP WITH STABDBY ASSISTED. PATIENT ABLE TO WALK A FEW STEPS.LOW BACK PAIN. SLOWLY TOWARDS POC GOALS.
[2020-10-04 20:10] VITALS: BP 131/78
--- NOTE | 2020-10-05 00:52 | NUR ---
PT RESTING IN BED WATCHING THE NEWS. LUNGS DIMINSHED IN THE BASES. PT IS VERY SLOW TO SIT ON THE EDGE OF THE BED, NEEDING ASSISTANCE TO LOWER HER LEGS OVER THE BED. PT IS ABLE TO STAND WITH WALKER AND SLOWLY SHUFFLE FORWARD TO PIVOT ONTO BSC. PT HAD HS SNACK, PRN FOR CHRONIC BACK PAIN PROVIDED. BED ALARM ON.
[2020-10-05 04:35] VITALS: BP 119/57
[2020-10-05 07:44] VITALS: BP 126/57
[2020-10-05 11:22] VITALS: BP 114/67
[2020-10-05 15:08] VITALS: BP 116/68
--- NOTE | 2020-10-05 15:46 | NUR ---
SW reviewed chart. Pt remains in Enhanced Isolation due to COVID-19. Pt is afebrile and not requiring O2. Pt is on IV abx. ID consulted today. Pt would like to return home with when discharged. LINK faxed HH referral to [facility] for review. LINK followed up with [facility] liaison, who will check to see if they are in-network with pt's insurance for a walker and wheelchair. LINK is following to assist as needed with discharge planning.
--- NOTE | 2020-10-05 17:54 | NUR ---
ASSUMED PATIENT CARE AT 0700. A/O X4. UP WALKED IN ROOM. SOLWLY TOWARDS POC GOALS.
[2020-10-05] MEDS ORDERED: NF PO (20:37)
[2020-10-05 20:47] VITALS: BP 133/49
--- NOTE | 2020-10-06 01:37 | NUR ---
ASSUMED PT CARE AROUND 1930. AXOX4. VSS. NO S/S ACUTE DISTRESS NOTED OR REPORTED AT THIS TIME. WILL CONT TO MONITOR FOR ANY CHANGES IN CONDTION.
[2020-10-06 05:22] VITALS: BP 144/68
[2020-10-06 07:26] VITALS: BP 151/73
[2020-10-06 10:18] VITALS: BP 151/73
--- NOTE | 2020-10-06 10:19 | NUR ---
FAXED REFERRAL TO [facility] HH SPOKE WITH EDU IN INTAKE SHE RECEIVED REFERRAL AND WILL ACCEPT AT [place].
[2020-10-06] MEDS ORDERED: CLINDAMYCIN HC300 MG PO (12:02)
--- NOTE | 2020-10-06 14:08 | NUR ---
ASSUMED PATIENT CARE AT 0700. A/0 X4. PROGRESSING TOWARDS POC GOALS. DC HOME WITH HH.
--- NOTE | 2020-10-06 15:49 | NUR ---
DISCHARGE NOTE: LINK reviewed chart and spoke with nursing and attending physician. Pt remains in Enhanced Isolation due to COVID-19. Pt is medically stable for discharge home today with services. LINK notified that [facility] is unable to accept pt on service at this time, due to staffing. equipment planner faxed HH referral and discharge orders/summary to [facility], who can accept. LINK spoke with Heriberto at [facility] [place], who states that pt's insurance will only cover one item at this time: wheelchair or walker. LINK spoke with pt via phone to discuss discharge plan. Pt verbalized understanding and would like a wheelchair for mobility around her house and outside of her home. LINK explained that insurance will need to approve w/c and it may take awhile to have w/c delivered to pt's home. Pt agreeable. Pt aware of having [facility]. Contact info for HH placed in pt's discharge summary. LINK obtained script for w/c from hospitalist and faxed to [facility] [place]. Pt's family provided transportation home earlier today. [facility] to follow up with pt regarding delivery of heavy duty w/c. LINK is following to assist as needed with discharge planning.
== END 2020-10-06 15:06 | disposition home health service (06) | DRG 177 ==
LOC: ER 16:48 → 3W 22:10 → EROBS 22:10 → 4W 22:10 → 3W 10-02 01:12 → 4W 10-03 01:46 → 3W 10-03 22:47
PROVIDERS: Emergency Medicine; Nurse Practitioner Adult Health; Nurse Practitioner Family; ADMIT Hospitalist; ATTEND Hospitalist
PROC: 5A09357 Assistance with Respiratory Ventilation, Less than 24 Consecutive Hours, Continuous Positive Airway Pressure (ICD-10-PCS; principal; 2020-10-03)
DX: U07.1 COVID-19 (principal); N17.0 Acute kidney failure with tubular necrosis; J12.89 Other viral pneumonia; Z68.43 Body mass index [BMI] 50.0-59.9, adult; R07.9 Chest pain, unspecified; I25.5 Ischemic cardiomyopathy; M79.7 Fibromyalgia; F32.9 Major depressive disorder, single episode, unspecified; G47.33 Obstructive sleep apnea (adult) (pediatric); E03.9 Hypothyroidism, unspecified; G62.9 Polyneuropathy, unspecified; E78.5 Hyperlipidemia, unspecified; I12.9 Hypertensive chronic kidney disease with stage 1 through stage 4 chronic kidney disease, or unspecified chronic kidney disease; N30.90 Cystitis, unspecified without hematuria; E66.01 Morbid (severe) obesity due to excess calories; D64.9 Anemia, unspecified; I25.10 Atherosclerotic heart disease of native coronary artery without angina pectoris; Z96.653 Presence of artificial knee joint, bilateral; Z98.84 Bariatric surgery status; Z79.82 Long term (current) use of aspirin; I25.2 Old myocardial infarction; Z79.899 Other long term (current) drug therapy; Z88.1 Allergy status to other antibiotic agents; Z88.0 Allergy status to penicillin; Z88.8 Allergy status to other drugs, medicaments and biological substances
CPT/HCPCS: 10779; 10879

== ENCOUNTER 2020-10-13 07:26 | Emergency (ER) | payer OTHER ==
[~2020-10-13] VITALS: Ht 154.9 cm; Wt 122.5 kg
[~2020-10-13 07:26] MED LIST changes: +CLINDAMYCIN HC300 MG PO; +MIRAPEX1 MG PO; +NF PO
[2020-10-13 10:31] LABS: ABSOLUTE NEUTROPHILS 3.9 thou/uL (1.4-8.2); BASOPHILS 1.1 % (0.0-2.0); EOSINOPHILS 7.8 % (0.0-3.0); HEMATOCRIT 34.3 % (37.0-47.0); HEMOGLOBIN 11.2 gm/dL (12.0-15.0); LYMPHOCYTES 22.5 % (24.0-44.0); MCH 28.9 pg (26.0-34.0); MCHC 32.6 g/dL (28.0-37.0); MCV 88.6 fL (80.0-100.0); MONOCYTES 9.6 % (1.0-8.0); PLATELET COUNT 332 thou/uL (150-400); RBC 3.87 mil/uL (4.20-5.00); RDW 14.9 % (10.5-14.5); WBC 6.6 thou/uL (4.0-11.0)
[2020-10-13 10:54] LABS: CALCIUM 8.1 mg/dL (8.5-10.1); CREATININE 1.9 mg/dL (0.6-1.0)
[2020-10-13 10:59] LABS: ALBUMIN 3.2 g/dL (3.4-5.0); TOTAL BILIRUBIN 0.3 mg/dL (0.2-1.0); TOTAL PROTEIN 6.7 g/dL (6.4-8.2)
[2020-10-13] MEDS ORDERED: DECADRON6 MG PO (12:09)
--- NOTE | 2020-10-13 12:19 | EKG ---
[facility] [place] [address] ELECTROCARDIOGRAM REPORT Name: SUE ANGUIANO Room #: REG [facility]#: [id number] Admission: 10/13/20 Attend Phys: Discharge: Date of : 56 Report #: [id number] THIS REPORT FOR: cc: NUZHAT Marsh family physician/PCP NUZHAT - Salma family physician/PCP Inder Barnes MD [facility] ~ THIS REPORT FOR: //name// [facility] ED Test Date: 2020-10-13 Test Time: 10:30:02 Pat Name: SUE ANGUIANO Department: Room: Gender: F Material Mover: norbert : 1960 Requested By: David Coon Order Number: [id number] MD: Inder Barnes Measurements Intervals [place] Rate: 59 P: 22 NH: 212 QRS: 19 QRSD: 90 T: 80 QT: 419 QTc: 415 Interpretive Statements Sinus rhythm Borderline prolonged NH interval Baseline wander in lead(s) V1,V3 Compared to ECG 10/02/2020 07:18:46 No significant changes Electronically Signed On 10-13-2020 12:19:38 ABSTRACT SEARCHER by Inder Barnes [email or web address] <ELECTRONICALLY SIGNED> By: Inder Barnes MD, FACC 10/13/20 1219 1030 1030 Inder Barnes MD, [facility] /EPI
[2020-10-13 16:14] VITALS: BP 133/82
== END 2020-10-13 16:16 | disposition still patient (30) ==
LOC: ER 07:26
PROVIDERS: Emergency Medicine
DX: U07.1 COVID-19 (principal); I10 Essential (primary) hypertension; M79.7 Fibromyalgia; Z98.84 Bariatric surgery status; Z98.51 Tubal ligation status; F31.9 Bipolar disorder, unspecified; I25.10 Atherosclerotic heart disease of native coronary artery without angina pectoris; I25.2 Old myocardial infarction; Z79.2 Long term (current) use of antibiotics; Z79.899 Other long term (current) drug therapy; Z88.1 Allergy status to other antibiotic agents; Z88.8 Allergy status to other drugs, medicaments and biological substances; Z88.0 Allergy status to penicillin

== ENCOUNTER → 2021-03-09 | Outpatient (CLI) | payer OTHER ==
[~2021-03-09] MED LIST changes: +DECADRON6 MG PO
== END ==
LOC: SJCVCIMAG 02-23 13:53
PROVIDERS: ATTEND Internal Medicine Cardiovascular Disease
DX: I50.9 Heart failure, unspecified (principal); I25.10 Atherosclerotic heart disease of native coronary artery without angina pectoris; I25.5 Ischemic cardiomyopathy; M19.90 Unspecified osteoarthritis, unspecified site; G62.9 Polyneuropathy, unspecified

== ENCOUNTER → 2021-05-04 | Outpatient (CLI) | payer OTHER | LOC: SJCVCIMAG 07:39 | PROVIDERS: ATTEND Internal Medicine Cardiovascular Disease | DX: I08.3 Combined rheumatic disorders of mitral, aortic and tricuspid valves (principal); I49.3 Ventricular premature depolarization; I11.0 Hypertensive heart disease with heart failure; I50.9 Heart failure, unspecified; I25.10 Atherosclerotic heart disease of native coronary artery without angina pectoris; I25.5 Ischemic cardiomyopathy; E78.5 Hyperlipidemia, unspecified; I73.9 Peripheral vascular disease, unspecified; E66.9 Obesity, unspecified; Z98.61 Coronary angioplasty status; Z79.899 Other long term (current) drug therapy ==